=== PATIENT | male | born 1945 | race Hispanic/Latino ===

== ENCOUNTER 2018-01-12 07:35 | Day surgery (SDC) | payer MEDICARE, BC ==
[2018-01-10 07:51] VITALS: BMI 43.2
[2018-01-12] MEDS ORDERED: Propofol 10 mg/ml Inj (20 ML) ONE (10:07)
[2018-01-12 10:50] VITALS: TEMP 98.4; O2SAT 99
[2018-01-12 10:58] VITALS: RESP 18
[2018-01-12 11:18] VITALS: PULSE 60
[2018-01-12] MEDS ORDERED: Sodium Chloride 0.9% 1,000 ML IV SCH (11:30)
[2018-01-12 11:50] VITALS: BP 137/65
== END 2018-01-12 12:32 | disposition home or self-care (01) ==
LOC: ENDO 07:35
PROVIDERS: ATTEND Internal Medicine Gastroenterology
DX: K21.9 Gastro-esophageal reflux disease without esophagitis (principal); K29.50 Unspecified chronic gastritis without bleeding; B96.81 Helicobacter pylori [H. pylori] as the cause of diseases classified elsewhere; I10 Essential (primary) hypertension; E11.9 Type 2 diabetes mellitus without complications; E78.5 Hyperlipidemia, unspecified; Z79.84 Long term (current) use of oral hypoglycemic drugs
CPT/HCPCS: 43239; 82948; 88305; 88342; J2001; J2704; J7040 ×2

== ENCOUNTER 2018-03-06 08:38 | Day surgery (SDC) | payer MEDICARE, BC ==
[2018-01-10 07:51] VITALS: BMI 43.2
[2018-03-06] MEDS ORDERED: Lidocaine 1% Inj (20ml) ONE (10:55)
[2018-03-06] MEDS ORDERED: Propofol 10 mg/ml Inj (20 ML) ONE ×3 (10:55→11:26)
[2018-03-06] MEDS ORDERED: Sodium Chloride 0.9% 1,000 ML IV SCH (11:45)
[2018-03-06 11:47] VITALS: RESP 12; TEMP 98.2
[2018-03-06 11:57] VITALS: O2SAT 98
[2018-03-06 12:10] VITALS: BP 149/78; PULSE 66
== END 2018-03-06 13:22 | disposition home or self-care (01) ==
LOC: ENDO 08:38
PROVIDERS: ATTEND Internal Medicine Gastroenterology
DX: D12.4 Benign neoplasm of descending colon (principal); K57.30 Diverticulosis of large intestine without perforation or abscess without bleeding; K64.8 Other hemorrhoids; I10 Essential (primary) hypertension; E11.9 Type 2 diabetes mellitus without complications; K21.9 Gastro-esophageal reflux disease without esophagitis; R13.10 Dysphagia, unspecified; E66.01 Morbid (severe) obesity due to excess calories; Z68.41 Body mass index [BMI] 40.0-44.9, adult; E78.5 Hyperlipidemia, unspecified
CPT/HCPCS: 45380; 82948; 88305; J2405; J2704; J7040 ×2